=== PATIENT | male | born 1970 | race Caucasian/White ===

== ENCOUNTER 2017-03-06 17:21 | Inpatient (IN) | payer OTHER ==
[~2017-03-06] VITALS: Ht 172.7 cm; Wt 77.4 kg
[~2017-03-06 17:21] MED LIST: METF500T4 PO; SULF1TAB7 PO
[2017-03-06 17:24] VITALS: BP 140/90; PULSE 105; RESP 15; O2SAT 99
[2017-03-06 17:42] LABS: BASOPHILS % (AUTO) 0.2 % (0-3); EOSINOPHILS % (AUTO) 0.6 % (0-5); MONOCYTES % (AUTO) 5.8 % (4-12); Mean Corpuscular Hemoglobin 30.7 pg (27.0-35.0); NEUTROPHILS % (AUTO) 83.7 % (40-74); Platelet Count 319 bil/L (150-400)
[2017-03-06 17:50] VITALS: BP 186/137; PULSE 115; RESP 40; O2SAT 98
--- NOTE | 2017-03-06 17:52 | DRSVH ---
PROCEDURE: X-RAY CHEST ONE VIEW, PORTABLE ([id number]) INDICATIONS: CHEST PAIN TECHNIQUE: One view of the chest was acquired. COMPARISON: None. FINDINGS: Surgical changes and devices: None. Lungs and pleura: No pleural effusions or pneumothorax. Vocal opacity noted in the right lung base w hich could represent atelectasis versus pneumonia. Mediastinum: Mediastinal contours appear normal. Heart size is normal. Bones and chest wall: No suspicious bony lesions. Overlying soft tissues appear unremarkable. IMPRESSION: Right basilar atelectasis versus pneumonia. Dictated by: Zoraida Duarte MD, PhD on 03/06/2017 at 17:50 Approved by: Zoraida Duarte MD, PhD on 03/06/2017 at 17:51
--- NOTE | 2017-03-06 18:04 | ED.REPORT ---
HPI-General Illness Date of Service March 06, 2017 ED Provider: Dr. Gracia Pt is a 46 y/o male w/ a hx of NIDDM presenting to the ED c/o sharp stabbing right-sided CP with radiation to the back onset 4 hours ago. He was working in his shop when the pain began. He has never experienced symptoms similar to this before. He used to use cocaine but hasn't in the past 5 years. He c/o associated SOB. Pt denies abdominal pain, nausea, vomiting, fever, chills. He states he buys a drug from a friend and doesn't know what it is and smokes it to calm himself. Nursing Notes Stated Complaint: CHEST PAIN AND ABD PAIN X3DAYS Chief Complaint: Chest Pain Nursing Notes Reviewed: Yes Allergies: Coded Allergies: Penicillins (Verified Allergy, Mild, SWELLING, 05/13/16) Scheduled Metformin (Metformin) 500 Mg Tablet 500 MG PO BIDWM General Time Seen by MD: 18:04 Chief Complaint Chest pain Hx Obtained From: Patient Arrived By: Walk-in Sudden in Onset?: No Onset Occurred: 1 - 4 hours ago Symptom Duration: Since onset Location: : Chest Quality: Sharp, Stabbing Radiation: : Does not radiate Severity: Current: Severe Severity: Maximum: Severe Similar Sx Previous: No Past Medical History Past Medical History NIDDM GERD Hx MRSA cellulitis Past Surgical History denies Smoking History Never Smoker Social History Denies drug use although meth positive Alcohol Use: In recovery Drug Use: Meth Occupation lives by self, work at [employer] Ambulatory Status Independent Review of Systems Full Review of Systems Constitutional: Denies: Chills, Fever Respiratory: Reports: Shortness of breath, Denies: Non-productive cough Cardiovascular: Reports: Chest pain, Denies: Edema GI: Denies: Abdominal pain, Nausea, Vomiting Complete sys rev & neg: except as marked. Physical Exam Vital Signs Vital Signs Date Time Temp Pulse Resp B/P Pulse Ox O2 Delivery O2 Flow Rate FiO2 03/06/17 18:47 93 16 141/64 96 Room Air 03/06/17 18:13 93 24 116/53 98 Room Air 03/06/17 17:50 115 40 186/137 98 03/06/17 17:24 36.4 105 15 140/90 99 Room Air Initial VS: Reviewed, Vital signs abnormal Head / Eyes: Atraumatic, Normocephalic, PERRL ENT: Mucous membranes moist, Conjunctiva normal, No scleral icterus Neck: Supple, Full range of motion Abdomen / GI: Soft, Non-tender, No guarding, No rebound, No distention Extremities: Vascular intact, Neuro intact, No swelling, No tenderness Skin: Warm, Dry, No cyanosis Neurologic: Alert, Oriented, Nonfocal General/Constitutional: Awake, Alert, Cooperative, Not toxic appearing Distress / Hydration: Positive: Distress moderate Behavior: Positive: Anxious Screaming out in the room Respiratory / Chest: Atraumatic, Breath sounds NL, Breath sounds = bilat, No respiratory distress, No rales, No rhonchi, No wheezing, No stridor, No chest tenderness No visible signs of trauma Hyperventilating Cardiovascular: Regular rhythm, Heart sounds NL, No gallop, No murmurs, No rubs , Cap refill not delayed, Peripheral circulation NL Heart Rate / Rhythm: Positive: Tachycardia Psychiatric: No hallucinations Abnormal Mood/Affect: Positive: Anxious Interpretation & Diagnostics Lab Results Interpretation Result Diagram: 03/06/17 1735 03/06/17 1735 Test 03/06/17 17:35 03/06/17 20:36 03/06/17 23:20 03/06/17 23:35 White Blood Count 18.6th/mm3 (3.8-10.1) Red Blood Count 4.99mil/mm3 (4.40-5.80) Hemoglobin 15.3g/dL (13.8-17.2) Hematocrit 42.9% (41.0-50.0) Mean Corpuscular Volume 86.0fL (81-100) Mean Corpuscular Hemoglobin 30.7pg (27.0-35.0) Mean Corpuscular Hemoglobin Concent 35.7% (32.0-37.0) Red Cell Distribution Width 12.1% (12.3-15.4) Platelet Count 319bil/L (150-400) Neutrophils (%) (Auto) 83.7% (40-74) Lymphocytes (%) (Auto) 9.5% (14-46) Monocytes (%) (Auto) 5.8% (4-12) Eosinophils (%) (Auto) 0.6% (0-5) Basophils (%) (Auto) 0.2% (0-3) D-Dimer < 0.50mg/L FEU (<0.50) Sodium Level 132mEq/L (134-144) Potassium Level 4.1mEq/L (3.5-5.2) Chloride Level 93mEq/L (97-108) Carbon Dioxide Level 23mmol/L (18-29) Blood Urea Nitrogen 13mg/dL (6-24) Creatinine 0.71mg/dL (0.76-1.27) Estimat Glomerular Filtration Rate 126mL/min (>59) Glucose Level 404mg/dL (60-99) Calcium Level 9.4mg/dL (8.5-10.1) Magnesium Level 1.7mg/dL (1.6-2.6) Total Bilirubin 0.7mg/dL (0.0-1.2) Aspartate Amino Transf (AST/SGOT) 15U/L (0-50) Alanine Aminotransferase (ALT/SGPT) 19U/L (0-44) Alkaline Phosphatase 94U/L (25-150) Total Protein 7.2g/dL (6.4-8.4) Albumin 3.9g/dL (3.4-5.0) Lipase 46U/L (13-60) Procalcitonin 0.05ng/mL (0.00-0.08) Hold Griffin Top Tube Received (Received) Urine Opiates Screen Negative Urine Methadone Screen Negative Urine Barbiturates Screen Negative Urine Amphetamines Screen Positive Urine Benzodiazepines Screen Negative Urine Cocaine Metabolite Screen Negative Urine Cannabinoids Screen Negative Lactic Acid Level 0.8mmol/L (0.4-2.0) Troponin T 0.010ug/L (0.0-0.011) Pulse Oximetry Interpretation Pulse Oximetry: Pulse Ox normal, On room air ECG Interpretation Time: 18:22 Interpreted by: ED physician Normal ECG Interpretation: Normal ECG w/ rate of... (96), Normal rate, Normal sinus rhythm, No acute ischemic changes, Normal QRS, Normal axis, Normal intervals, Adequate tracing CBC Interpretation CBC normal except, WBC elevated BMP / CMP Interpretation BMP/CMP normal except, Glucose elevated Cardiac / Vascular Lab Interp D-Dimer normal Drug Screen / Level Interp Urine pos amphetamines X-Ray Chest Interpretation Chest Xray Interpretation: IMPRESSION: Right basilar atelectasis versus pneumonia. Dictated by: Zoraida Duarte MD, PhD on 03/06/2017 at 17:50 Approved by: Zoraida Duarte MD, PhD on 03/06/2017 at 17:51 View: Portable, 1 view Interpretation / Wet Read by: Interpret - Radiologist CT Chest Interpretation IMPRESSION: 1. Right basilar opacity stable compared to plain film radiograph obtained 03/06/17 at 1725 hrs. Finding likely represents pneumonia. Recommend followup imaging to resolution to exclude underlying neoplastic process. 2. No pulmonary embolus. Dictated by: Zoraida Duarte MD, PhD on 03/06/2017 at 19:25 Approved by: Zoraida Duarte MD, PhD on 03/06/2017 at 19:32 Study type: CT pulm angiogram Interpretation / Wet Read by: Interpret - Radiologist CT Abd / Pelvis Interpretation IMPRESSION: 1. Focal opacity in the right lung base. Finding likely represents pneumonia. Recommend followup imaging to resolution to exclude underlying neoplastic process. 2. Spine degenerative disc disease and facet arthropathy. Area 3. 2 mm nonobstructing left renal stone. Dictated by: Zoraida Duarte MD, PhD on 03/06/2017 at 19:33 Approved by: Zoraida Duarte MD, PhD on 03/06/2017 at 19:40 Study type: Abdominal CT IV contrast Interpretation / Wet Read by: Interpret - Radiologist Re-Eval/Medical Decision Time of Eval: 23:06 Re-Evaluation/Progress Note: Pt rechecked. Informed pt of need for admission. Pt understands and agrees with plan for admission. All questions addressed. Consultation : Referral / Consult Name: Raymond Harris MD Consulted With: Hospitalist Call Returned at: 23:06 Sales Assistant: Will see patient, Agrees with eval, Agrees with plan, Accepts admit Counseled Regarding: Diagnosis, Lab results, Need for admission Discharge & Departure Primary Impression: Right lower lobe pneumonia Pneumonia type: due to unspecified organism Qualified Code: J18.1 - Lobar pneumonia, unspecified organism Additional Impressions: Methamphetamine abuse Parapneumonic effusion Disposition: ADMITTED TO HOSPITAL Discharge Condition All VS Reviewed: Yes Condition: Stable Patient Instructions: Bacterial Pneumonia (ED), Methamphetamine Abuse (ED) Referrals: Kevin Peña MD (PCP) Scribe Attestation Portions of this note were transcribed by Lefty Stanley. Dr. Basil Guevara personally performed the history, physical exam and medical decision-making; I reviewed and confirmed the accuracy of the information in the transcribed note. Signed by Donnell Hutson, 03/06/171814 copies to: Kevin Peña MD, Todd P DO March 06, 2017 18:04 LEFTY STANLEY March 06, 2017 18:07
[2017-03-06] MEDS ORDERED: 0.9% Sodium Chloride 1,000 ML IV SCH (18:05)
[2017-03-06] MEDS: HYDROmorphone 0.5 mg/0.5 mL iSecure Syringe IVPUSH PRN ×3 (18:07→18:48)
[2017-03-06 18:13] VITALS: BP 116/53; PULSE 93; RESP 24; O2SAT 98
[2017-03-06 18:23] LABS: TROPONIN T < 0.010 ug/L (0.0-0.011)
[2017-03-06 18:28] LABS: Magnesium 1.7 mg/dL (1.6-2.6)
[2017-03-06 18:47] VITALS: BP 141/64; PULSE 93; RESP 16; O2SAT 96
--- NOTE | 2017-03-06 19:34 | DRSVH ---
PROCEDURE: CT ANGIO CHEST PULMONARY EMBOLISM ([id number]) INDICATIONS: severe lower right sided chest pain, ruq pain TECHNIQUE: After the administration of intravenous contrast, 2 mm thick sections acquired from the pulmonary api francy to the posterior costophrenic angles. 3-dimensional maximum intensity projection (MIP) coronal a nd sagittal reformats were then acquired through the thorax. For radiation dose reduction, the follo wing was used: automated exposure control, adjustment of mA and/or kV according to patient size. COMPARISON: [facility], CR, XR CHEST 1VW (PORTABLE), 03/06/2017, 17:25. FINDINGS: Image quality: Excellent. Pulmonary arteries: Pulmonary arteries are normal in size, and demonstrate no intraluminal filling d efects to suggest central pulmonary embolism. Lungs and pleura: Opacity noted in the right lung base which is stable compared to plain film radiog raphs obtained 03/06/17 at 1725 hrs. Race right-sided pleural effusion. No pneumothorax. Central an d peripheral airways are patent. Mediastinum: Heart size is normal, without pericardial effusion. No mediastinal or hilar adenopathy . Thoracic aorta is normal in caliber and enhancement. Esophagus is normal in caliber, without hiat al hernia. Bones and chest wall: No suspicious bony lesions. Ribs and thoracic spine appear intact throughout. Thyroid gland is within normal limits where visualized. No axillary or supraclavicular adenopathy. Abdomen: Visualized upper abdominal solid organs appear normal in the early arterial phase of enhanc ement. IMPRESSION: 1. Right basilar opacity stable compared to plain film radiograph obtained 03/06/17 at 1725 hrs. Fin ding likely represents pneumonia. Recommend followup imaging to resolution to exclude underlying puneet plastic process. 2. No pulmonary embolus. Dictated by: Zoraida Duarte MD, PhD on 03/06/2017 at 19:25 Approved by: Zoraida Duarte MD, PhD on 03/06/2017 at 19:32
--- NOTE | 2017-03-06 19:42 | DRSVH ---
PROCEDURE: CT ABDOMEN AND PELVIS WITH CONTRAST ([id number]) INDICATIONS: severe lower right sided chest pain, ruq pain TECHNIQUE: After the administration of intravenous contrast, 5 mm thick sections acquired from the diaphragm to the symphysis. 5 mm coronal and sagittal reformats were acquired. For radiation dose reduction, the following was used: automated exposure control, adjustment of mA and/or kV according to patient marcelo jack. COMPARISON: [facility], CT, CT ANGIO CHEST PE, 03/06/2017, 19:02. [facility] , CR, XR CHEST 1VW (PORTABLE), 03/06/2017, 17:25. FINDINGS: Image quality: Excellent. ABDOMEN: Lung bases: Focal opacity noted in the right lung base. Small right-sided pleural effusion is noted . Heart size is normal. Solid organs: Liver and spleen are normal in size and enhancement. Gallbladder is within normal aragon its. Biliary system is non dilated. Pancreas enhances normally. No adrenal nodules. Kidneys demon strate normal size and enhancement, without hydronephrosis. 2 mm nonobstructing left renal stone is n oted. Peritoneum and bowel: Bowel loops demonstrate normal wall thickness and caliber. No free fluid or a ir. The appendix is normal. Nodes and vessels: No retroperitoneal or mesenteric adenopathy by size criteria. Aorta and inferior vena cava are normal in size. Miscellaneous: No ventral hernias. PELVIS: Genitourinary: Bladder wall thickness is normal. Miscellaneous: No inguinal hernias or adenopathy. Bones: No suspicious bony lesions. No vertebral body compression fractures. Spine degenerative dise ase and facet arthropathy noted. IMPRESSION: 1. Focal opacity in the right lung base. Finding likely represents pneumonia. Recommend followup i maging to resolution to exclude underlying neoplastic process. 2. Spine degenerative disc disease and facet arthropathy. Area 3. 2 mm nonobstructing left renal s tone. Dictated by: Zoraida Duarte MD, PhD on 03/06/2017 at 19:33 Approved by: Zoraida Duarte MD, PhD on 03/06/2017 at 19:40
[2017-03-06] MEDS ORDERED: cefTRIAXone Inj 2,000 MG in Dextrose 5% Minibag Plus 50 ML IV ONE (20:10)
[2017-03-06] MEDS ORDERED: Azithromycin Inj 500 MG in Dextrose 5% w/Vial Mate 250 ML IV ONE (20:41)
[2017-03-06] MEDS ORDERED: Polyethylene Glycol (PEG) 17 Gm Powder PO PRN (23:40)
[2017-03-06] MEDS ORDERED: Alum-Mag Hydrox-Simeth 30 mL Suspension PO PRN (23:40)
[2017-03-06] MEDS ORDERED: Glucose 40% Oral Gel 15 Gm Tube PO PRN (23:50)
--- NOTE | 2017-03-06 23:55 | PCM.HPMED ---
Subjective Date of Service March 06, 2017 Primary Provider: Admitting Physician: Raymond Harris MD Primary Care Physician: Kevin Peña MD Attending Physician: Raymond Harris MD Admit Status: From the Emergency Department Chief Complaint: Right-sided rib pain History of Present Illness: This is a 46-year-old male with past medical history significant for diabetes mellitus type II who presents today for right-sided rib pain. The patient states that the pain began about 4 days ago and has been intermittent. Tonight the pain became very severe in his right lower anterior ribs. The pain is described as sharp and stabbing with radiation to the back. He states that he can press down on his ribs to cause the pain. He denies any history of trauma. He does have a history of MRSA. The patient also snorts drugs although he is not sure exactly what he is snorting but believes it to be meth. He denies any numbness or tingling in extremities, nausea, vomiting, abdominal pain, fevers, chills. In the emergency department the patient's initial vitals were temperature 36 4 Celsius, pulse 105, respiratory rate 15, blood pressure 140/90, satting at 99% on room air. Initial laboratory tests WBC 18.6 with left shift, hemoglobin 15.3 , hematocrit 42.9, platelets 319. Sodium 132, glucose 404. BUN 13, creatinine .71. Troponin less than 0.010. Lipase 46. The patient's most recent A1c was completed on 02/21/2017 and was 13.4. Chest x-ray showed right basilar atelectasis versus pneumonia. CT angiogram showed right basilar opacity. Finding likely represents pneumonia. No pulmonary embolus. CT of the abdomen and pelvis with contrast focal opacity in the right lung base. 2 mm nonobstructing left renal stone. The patient was provided with azithromycin and ceftriaxone. He was also given nitroglycerin and cannot recall if this helped the rib pain. Review of Systems: A comprehensive review of systems was conducted with the patient and found to be negative except as above in the History of Present Illness. Allergies Coded Allergies: Penicillins (Verified Allergy, Mild, SWELLING, 05/13/16) Home Medications Metformin PMH Diabetes mellitus type II History of sleep apnea Surgical History None Family History Brother: Seizure disorder. Father: Hypertension, hyperlipidemia, diabetes, CAD. Social History Hx Alcohol Use: Yes (sober "several" years. ) Hx Substance Use: Yes ("I snort stuff to get energy, I don't know what it is". today. ) Hx Tobacco Use: No Smoking Status: Never Smoker Exam Vital Signs Vital Sign - Last Date Time Temp Pulse Resp B/P Pulse Ox O2 Delivery O2 Flow Rate FiO2 03/06/17 18:47 93 16 141/64 96 Room Air 03/06/17 17:24 36.4 Exam General: No acute distress, well-developed, well-nourished. HEENT: Normocephalic, atraumatic. External ears without defect. Pupils equal, round, and reactive to light and accommodation. Anicteric sclerae, moist conjunctivae, and no lid lag. Oropharynx has dry mucosa. Neck: Supple with full range of motion. No jugular venous distension. No bruits. No lymphadenopathy or thyromegaly. Cardiovascular: Regular rate and rhythm with no murmurs, rubs, or gallops appreciated Pulmonary: Crackles right lung base. Egophony right lower lung. No wheezes or rhonchi. Normal respiratory effort with no use of accessory muscles. Abdomen: Bowel tones present. Soft, nontender, nondistended. No hepatosplenomegaly or masses appreciated. Extremities: No clubbing, cyanosis, edema, or lymphadenopathy appreciated. Musculoskeletal: Tenderness to palpation of right lower ribs. Skin: Normal temperature, turgor, and texture; no rash, ulcers, or subcutaneous nodules appreciated. Neurological: Cranial nerves grossly intact. Normal muscle strength, tone, and bulk. Reflexes, coordination, and sensory function within normal limits. No known gait impairment. Lab and Diagnostics Result Diagram: 03/06/17 1735 03/06/17 1735 X-Rays, CTs and MRIs Chest x-ray completed on 03/06/2017: IMPRESSION: Right basilar atelectasis versus pneumonia. Dictated by: Zoraida Duarte MD, PhD on 03/06/2017 at 17:50 CT angiogram of chest completed on 03/06/2017: IMPRESSION: 1. Right basilar opacity stable compared to plain film radiograph obtained 03/06 at 1725 hrs. Finding likely represents pneumonia. Recommend followup imaging to resolution to exclude underlying neoplastic process. 2. No pulmonary embolus. Dictated by: Zoraida Duarte MD, PhD on 03/06/2017 at 19:25 CT abdomen with contrast completed on 03/06/2017: IMPRESSION: 1. Focal opacity in the right lung base. Finding likely represents pneumonia. Recommend followup imaging to resolution to exclude underlying neoplastic process. 2. Spine degenerative disc disease and facet arthropathy. Area 3. 2 mm nonobstructing left renal stone. Dictated by: Zoraida Duarte MD, PhD on 03/06/2017 at 19:33 Assessment & Plan This is a 46-year-old male with past medical history significant for diabetes mellitus type II and substance abuse who presents today with right anterior lower rib pain. The patient states that the pain began 4 days ago. He denies any traumatic events. The pain worsened this evening. In the emergency department lab workup was significant for a white blood cell count of 18.6 with left shift. Imaging of the chest showed right basilar pneumonia. The patient does not history of MRSA. Sepsis, ongoing, present on admission: -Likely secondary to community acquired pneumonia. -CT angiogram showed no pulmonary embolus but did show a right basilar opacity likely representing a pneumonia. -Patient was given azithromycin and ceftriaxone in the emergency department. Will continue. -Due to history of MRSA added vancomycin. -Blood cultures, sputum cultures, Legionella antigen, strep pneumo antigen, MRSA swab are pending. -Procalcitonin was 0.05. Right sided chest pain, ongoing, present on admission: -Likely musculoskeletal vs. pleuritic. -[place] added. -Troponin trended x 2. Diabetes mellitus type II, present on admission, ongoing: -Patient's most recent A1c on 02/21/2017 was 13.4. On admission his blood glucose was 404. -Humalog medium dose correctional added -Consider adding basal insulin in the morning. Hypovolemic hyponatremia, present on admission, ongoing: -Sodium of 132 on admit. -Normal saline at 100 ml per hour. History of substance abuse, present on admission, ongoing: -Tox screen was positive for amphetamine. -Patient snorts methamphetamine. DVT prophylaxis with Lovenox. Patient is admitted under observation status with expected length of stay less than 2 midnights due to severity of presenting symptoms, risk of adverse event, and complexity of treatment plan. Attending Statement The patient was seen and examined together with Dr. Lara on 03/06 and I agree with the history, exam and plan as outlined in the note above. Tang Lara DO March 06, 2017 23:55 Raymond Harris MD March 07, 2017 06:30
[2017-03-06 23:59] VITALS: BP 114/69; PULSE 93; RESP 30; O2SAT 98
[2017-03-07] MEDS: 0.9% Sodium Chloride 1,000 ML IV SCH ×4 (00:24→19:39)
[2017-03-07 00:47] VITALS: BP 144/74; PULSE 88; RESP 20; O2SAT 98
--- NOTE | 2017-03-07 02:16 | NUR ---
ADMIT: 0005 Pt. arrived to [facility] from the ED via stretcher. Very somnolent, only answers to "yes, no" questions and sometimes no answers. Started IVF on LAC NS at 100 ml/hr. VS taken upon arrival. Pt. has $710.oo joseph, sent to the safe. Sleeping at this time. On going care.
[2017-03-07] MEDS: HYDROmorphone 0.5 mg/0.5 mL iSecure Syringe IVPUSH PRN (02:24)
--- NOTE | 2017-03-07 02:31 | NUR ---
PAIN: Pt. woke up c/o pain cramping on his right leg rated 10/10, states this has been going on for a while at home "always wake up in a lot of pain on my legs". Given 0.5 mg of IV Dilaudid. Helpful. Pt. went back to sleep after awhile. On going care.
[2017-03-07] MEDS ORDERED: Vancomycin Inj 1,750 MG in 0.9% Sodium Chloride 500 ML IV ONE (04:00)
[2017-03-07] MEDS: HYDROcodone-APAP 5-325 mg Tablet PO PRN ×3 (04:35→19:47)
[2017-03-07 06:03] VITALS: BP 156/75; PULSE 90; RESP 18; O2SAT 97
--- NOTE | 2017-03-07 06:35 | PCM.CONPHA ---
Subjective Date of Service: March 07, 2017 Requesting Provider: Tang Lara DO Right-sided rib pain History of Present Illness sepsis, secondary to possible community acquired pneumonia and UTI? Reason for Pharmacy Consult: Vancomycin Dosing Objective Assessment/Plan Assessment/Plan a/ - 46 y/o male patient admitted in late yesterday for sepsis, secondary to community acquired pneumonia and possible UTI which Vancomycin required for empirical coverage. Patient has hx of MRSA, DM, and snorts methamphetamine - Afebrile, WBC: 18.6 with left shift, blood cultures (x2), urine, sputum, nasal MRSA screen pending - Comitant abx: ceftriaxone and azithromycin - Wt: 78.5 kg, ht: 173 cm, SCr: 0.71 mg/dL, estimated clearance >125ml/min, BMI : 26.3kg/m2m Vd~55L/kg P/ - Give loading dose Vancomycin 1750mg iv @0430, then 1250mg iv q8h. Trough level ordered before 4th dose @0330 on 03/08 Pharmacy will continue to follow and make necessary adjustment Thank you for consulting clinical pharmacy in the care of this patient Juan Francisco Costa Update: - Last 24 hrs, patient is noted not clinically improved, WBC jumped to 21.8. However, all screens/labs came back negative and no growth 24 hrs. Recommend ID consult - Doses given on time, trough drawn appropriate, level is low 5.2 - Give one additional dose of Vancomycin of 750mg to 1250mg already running, then increase Vancomycin 1500mg iv q8h. - If the therapy is to be continued, floor pharmacist will adjust dose as needed (as today SCr is pending) and determine next trough level. Thank you Pato Marsh March 07, 2017 06:35 Mean Corpuscular Hemoglobin 30.7pg (27.0-35.0) Mean Corpuscular Hemoglobin Concent 35.7% (32.0-37.0) Red Cell Distribution Width 12.1% (12.3-15.4) Platelet Count 319bil/L (150-400) Neutrophils (%) (Auto) 83.7% (40-74) Lymphocytes (%) (Auto) 9.5% (14-46) Monocytes (%) (Auto) 5.8% (4-12) Eosinophils (%) (Auto) 0.6% (0-5) Basophils (%) (Auto) 0.2% (0-3) D-Dimer < 0.50mg/L FEU (<0.50) Sodium Level 132mEq/L (134-144) Potassium Level 4.1mEq/L (3.5-5.2) Chloride Level 93mEq/L (97-108) Carbon Dioxide Level 23mmol/L (18-29) Blood Urea Nitrogen 13mg/dL (6-24) Creatinine 0.71mg/dL (0.76-1.27) Estimat Glomerular Filtration Rate 126mL/min (>59) Glucose Level 404mg/dL (60-99) Calcium Level 9.4mg/dL (8.5-10.1) Magnesium Level 1.7mg/dL (1.6-2.6) Total Bilirubin 0.7mg/dL (0.0-1.2) Aspartate Amino Transf (AST/SGOT) 15U/L (0-50) Alanine Aminotransferase (ALT/SGPT) 19U/L (0-44) Alkaline Phosphatase 94U/L (25-150) Total Protein 7.2g/dL (6.4-8.4) Albumin 3.9g/dL (3.4-5.0) Lipase 46U/L (13-60) Procalcitonin 0.05ng/mL (0.00-0.08) Hold Griffin Top Tube Received (Received) Urine Opiates Screen Negative Urine Methadone Screen Negative Urine Barbiturates Screen Negative Urine Amphetamines Screen Positive Urine Benzodiazepines Screen Negative Urine Cocaine Metabolite Screen Negative Urine Cannabinoids Screen Negative Lactic Acid Level 0.8mmol/L (0.4-2.0) Troponin T 0.010ug/L (0.0-0.011) Pato Costa March 07, 2017 06:35
[2017-03-07 08:12] VITALS: BP 119/74; PULSE 61; RESP 18; O2SAT 96
[2017-03-07] MEDS: Vancomycin Dose per Pharmacist XX SCH ×2 (08:17→08:18)
[2017-03-07] MEDS: Insulin LISPRO 300 Unit/3 mL Inj SUBQ SCH ×4 (08:40→21:32)
--- NOTE | 2017-03-07 09:44 | NUR ---
Social Work: Screening Data: Pt is a 46 y/o male admitted for aneumonia parapneumonic effusion. Pt's PCP is Dr Peña, pt's insurance si [employer] [place]. EMR reviewed. Readmit score not listed. Pt reports snorting drugs, per H&P, and not knowing what the drugs are. Per H&P from 2008 hospitalization, pt stated he snorted cocaine at that time. SPONGE PRESS OPERATOR will discuss CD assessment with MD and await orders. SPONGE PRESS OPERATOR will continue to follow. Assessment: Pt who is independent at baseline. Plan: Pt will d/c home when medically stable, SPONGE PRESS OPERATOR will discuss CD assessment with MD and await orders. SPONGE PRESS OPERATOR will continue to follow. STONEY Bar Addendum: 03/07/17 at 1537 by LIZA HENRIQUEZ SS SPONGE PRESS OPERATOR met with pt at bedside, pt states he lives alone and that he sleeps at his mother's house. Pt states he has a ride home with family or friends at d/c. STONEY Bar
--- NOTE | 2017-03-07 11:24 | PCM.PNMED ---
Subjective Date of Service March 07, 2017 Subjective Patient seemed mildly diaphoretic, drowsy this morning Complain of right lower side chest pain, severely worse with deep breathing, and movement denied chest pain, hemoptysis Exam Vital Signs Vital Sign - Last Date Time Temp Pulse Resp B/P Pulse Ox O2 Delivery O2 Flow Rate FiO2 03/07/17 08:12 37.1 61 18 119/74 96 Room Air 03/07/17 06:03 3.00 Intake and Output 03/06/17 03/06/17 03/07/17 Cumulative From/Thru 15:00 23:00 07:00 03/06/17 17:24 - 03/07/17 06:23 Intake Total 1000 ml 1352 ml 2352 ml Output Total 750 ml 750 ml Balance 1000 ml 602 ml 1602 ml Intake Oral 440 ml 440 ml IV Total 1000 ml 912 ml 1912 ml Output Urine Total 750 ml 750 ml # Voids 2 2 # Bowel Movements 0 0 Exam NAD, comfortably laying down on the bed no JVD, MMM, no LAD RRR, nl s1, s2 no mrg Decreased breathing sounds at right base, crackles at left base S,ND,NT,normoactive BS+ warm, no edema, pulses 2/2 IVs and Medications Medications Reviewed: Medications were reviewed in detail Lab and Diagnostics Result Diagram: 03/06/17 1735 03/06/17 1735 X-Rays, CTs and MRIs Chest x-ray completed on 03/06/2017: IMPRESSION: Right basilar atelectasis versus pneumonia. Dictated by: Zoraida Duarte MD, PhD on 03/06/2017 at 17:50 CT angiogram of chest completed on 03/06/2017: IMPRESSION: 1. Right basilar opacity stable compared to plain film radiograph obtained 03/06 at 1725 hrs. Finding likely represents pneumonia. Recommend followup imaging to resolution to exclude underlying neoplastic process. 2. No pulmonary embolus. Dictated by: Zoraida Duarte MD, PhD on 03/06/2017 at 19:25 CT abdomen with contrast completed on 03/06/2017: IMPRESSION: 1. Focal opacity in the right lung base. Finding likely represents pneumonia. Recommend followup imaging to resolution to exclude underlying neoplastic process. 2. Spine degenerative disc disease and facet arthropathy. Area 3. 2 mm nonobstructing left renal stone. Dictated by: Zoraida Duarte MD, PhD on 03/06/2017 at 19:33 Assessment & Plan This is a 46-year-old male with past medical history significant for diabetes mellitus type II and substance abuse who presents today with right anterior lower rib pain. The patient states that the pain began 4 days ago. He denies any traumatic events. The pain worsened this evening. In the emergency department lab workup was significant for a white blood cell count of 18.6 with left shift. Imaging of the chest showed right basilar pneumonia. The patient does not history of MRSA. Sepsis, ongoing, present on admission: Likely secondary to community acquired pneumonia. CT angiogram showed no pulmonary embolus but did show a right basilar opacity likely representing a pneumonia. -Patient was given azithromycin and ceftriaxone in the emergency department. Will continue. -Due to history of MRSA added vancomycin. -Blood cultures, sputum cultures, Legionella antigen, strep pneumo antigen, MRSA swab are pending. -Procalcitonin was 0.05. Right sided chest pain, ongoing, present on admission, likely due to given lesions, pleuritic inflammation. -will consider CT-guided biopsy given atypical looking lesion for PNA if pt remains symptomatic, clinically not improving Diabetes mellitus type II, present on admission, Patient's most recent A1c on was 13.4. On admission his blood glucose was 404. -Humalog medium dose correctional added -added [id number] today Hypovolemic hyponatremia, present on admission, ongoing: Sodium of 132 on admit. -Normal saline at 100 ml per hour. chronic, stable History of substance abuse, present on admission, ongoing: Tox screen was positive for amphetamine. -Patient snorts methamphetamine, appreciate CM/SW input, chemical dependency specialist. DVT prophylaxis with Lovenox. dispo: likely 2-3more days Time spent 35 minutes Ryan Reyes MD March 07, 2017 11:24
[2017-03-07 11:58] LABS: BASOPHILS % (AUTO) 0.1 % (0-3); EOSINOPHILS % (AUTO) 0.2 % (0-5); MONOCYTES % (AUTO) 7.6 % (4-12); Mean Corpuscular Hemoglobin 30.6 pg (27.0-35.0); Mean Corpuscular Volume 87.8 fL (81-100); NEUTROPHILS % (AUTO) 85.9 % (40-74); Platelet Count 300 bil/L (150-400)
[2017-03-07] MEDS: Vancomycin Inj 1,250 MG in 0.9% Sodium Chloride 250 ML IV SCH ×2 (12:24→21:32)
[2017-03-07 12:34] LABS: Magnesium 1.7 mg/dL (1.6-2.6)
[2017-03-07 13:23] VITALS: BP 125/76; PULSE 88; RESP 18; O2SAT 95
--- NOTE | 2017-03-07 15:33 | NUR ---
Social Work: Attempted Chemical Dependency Assessment BUTTONHOLE FACER met with pt at bedside. BUTTONHOLE FACER offered [facility] CDP assessment, BUTTONHOLE FACER CD assessment, and CD resources. Pt declines all of these offers. BUTTONHOLE FACER left contact information on the board, encouraged pt to consider assessment or resources. BUTTONHOLE FACER will continue to follow. STONEY Bar
[2017-03-07 19:49] VITALS: BP 138/89; PULSE 63; RESP 20; O2SAT 95
[2017-03-07] MEDS: cefTRIAXone Inj 2,000 MG in Dextrose 5% Minibag Plus 50 ML IV SCH (20:45)
[2017-03-07] MEDS: Azithromycin Inj 500 MG in Dextrose 5% w/Vial Mate 250 ML IV SCH (23:15)
[2017-03-08] MEDS: HYDROcodone-APAP 5-325 mg Tablet PO PRN ×4 (01:39→21:10)
[2017-03-08] MEDS ORDERED: Vancomycin Serum Trough XX ONE (03:30)
[2017-03-08 03:47] LABS: BASOPHILS % (AUTO) 0.1 % (0-3); EOSINOPHILS % (AUTO) 0.1 % (0-5); MONOCYTES % (AUTO) 8.2 % (4-12); Mean Corpuscular Hemoglobin 29.9 pg (27.0-35.0); Mean Corpuscular Volume 87.7 fL (81-100); NEUTROPHILS % (AUTO) 85.3 % (40-74); Platelet Count 305 bil/L (150-400)
[2017-03-08] MEDS: Vancomycin Inj 1,250 MG in 0.9% Sodium Chloride 250 ML IV SCH (04:38)
[2017-03-08] MEDS: 0.9% Sodium Chloride 1,000 ML IV SCH ×2 (04:39→15:57)
[2017-03-08] MEDS ORDERED: Vancomycin Inj 750 MG in 0.9% Sodium Chloride 250 ML IV ONE (05:35)
[2017-03-08 06:01] VITALS: BP 137/78; PULSE 95; RESP 18; O2SAT 96
--- NOTE | 2017-03-08 06:14 | NUR ---
PAIN/PSYCHE PT REPORTED PAIN 7-8, REC'D PRN VICODIN X2 TIMES WITH + EFFECTS. ABLE TO SLEEP MOST OF NIGHT. USING O2 AT 2L VIA NC. PT CRYING AND STARTED TELLING THIS NURSE SPONTANEOUSLY, REGARDING HIS METH USE, HOME SITUATION AND SAFETY. HE HAS FAMILY ISSUES AND DOES NOT FEEL SAFE, USING METH FOR ENERGY. STATED HE DOES NOT WANT TO LIVE LIKE THIS. CHARGE NURSE NOTIFIED TO PASS TO AM CHARGE NURSE FOR MOBILE APPLICATION DEVELOPER TO SEE HIM.
[2017-03-08 06:54] LABS: Magnesium 1.7 mg/dL (1.6-2.6)
[2017-03-08] MEDS: Insulin LISPRO 300 Unit/3 mL Inj SUBQ SCH ×4 (08:05→21:14)
[2017-03-08] MEDS: Vancomycin Dose per Pharmacist XX SCH (08:07)
[2017-03-08 09:54] VITALS: BP_SYST 102; BP_SYST 122; BP_DIAS 62; BP_DIAS 74; PULSE 97; RESP 18; O2SAT 97; O2SAT 99
--- NOTE | 2017-03-08 11:08 | PCM.PNMED ---
Subjective Date of Service Mar 08, 2017 Subjective pt looked more comfortable, not diaphoretic, c/o cough, sputum-white still has rt sided pain, excruciating with moving, deep inhalation, PCT/wbc worsening, remained afebrile, awaits ID consult, CT guided biopsy was not recommended by Radiology Exam Vital Signs Vital Sign - Last Date Time Temp Pulse Resp B/P Pulse Ox O2 Delivery O2 Flow Rate FiO2 03/08/17 09:54 37.2 97 18 122/74 97 Nasal Cannula 2.00 Intake and Output 03/07/17 03/07/17 03/08/17 Cumulative From/Thru 15:00 23:00 07:00 03/06/17 17:24 - 03/08/17 06:39 Intake Total 2169 ml 2486 ml 7007 ml Output Total 1400 ml 1020 ml 3170 ml Balance 769 ml 1466 ml 3837 ml Intake Oral 800 ml 1114 ml 2354 ml IV Total 1369 ml 1372 ml 4653 ml Output Urine Total 1400 ml 1020 ml 3170 ml # Voids 2 # Bowel Movements 0 0 Exam NAD, comfortably laying down on the bed no JVD, MMM, no LAD RRR, nl s1, s2 no mrg Decreased breathing sounds at right base, crackles at left base S,ND,NT,normoactive BS+ warm, no edema, pulses 2/2 IVs and Medications Medications Reviewed: Medications were reviewed in detail Lab and Diagnostics Result Diagram: 03/08/17 0340 03/08/17 0550 X-Rays, CTs and MRIs Chest x-ray completed on 03/06/2017: IMPRESSION: Right basilar atelectasis versus pneumonia. Dictated by: Zoraida Duarte MD, PhD on 03/06/2017 at 17:50 CT angiogram of chest completed on 03/06/2017: IMPRESSION: 1. Right basilar opacity stable compared to plain film radiograph obtained 03/06 at 1725 hrs. Finding likely represents pneumonia. Recommend followup imaging to resolution to exclude underlying neoplastic process. 2. No pulmonary embolus. Dictated by: Zoraida Duarte MD, PhD on 03/06/2017 at 19:25 CT abdomen with contrast completed on 03/06/2017: IMPRESSION: 1. Focal opacity in the right lung base. Finding likely represents pneumonia. Recommend followup imaging to resolution to exclude underlying neoplastic process. 2. Spine degenerative disc disease and facet arthropathy. Area 3. 2 mm nonobstructing left renal stone. Dictated by: Zoraida Duarte MD, PhD on 03/06/2017 at 19:33 Assessment & Plan This is a 46-year-old male with past medical history significant for diabetes mellitus type II and substance abuse who presents today with right anterior lower rib pain. The patient states that the pain began 4 days ago. He denies any traumatic events. The pain worsened this evening. In the emergency department lab workup was significant for a white blood cell count of 18.6 with left shift. Imaging of the chest showed right basilar pneumonia. The patient does not history of MRSA. Sepsis, ongoing, present on admission: Likely secondary to community acquired pneumonia. CT angiogram showed no pulmonary embolus but did show a right basilar opacity likely representing a pneumonia. -pt is clinically stable, however, lab trends are worsening -started azithromycin and ceftriaxone in the emergency department, continue for now, -Due to history of MRSA added vancomycin, stopped today given neg MRSA. -infectious w/u: BCX, sputum cultures, Legionella antigen, strep pneumo antigen , MRSA swab NGTD -appreciate ID insight Right sided chest pain, ongoing, present on admission, likely due to given lesions, pleuritic inflammation. -considered CT-guided biopsy given atypical looking lesion for PNA, however, not recommended by Radiology Diabetes mellitus type II, present on admission, Patient's most recent A1c on was 13.4. On admission his blood glucose was 404, -glc 175 in target -Humalog medium dose correctional added -added [id number], continue for now Hypovolemic hyponatremia, present on admission, ongoing: Sodium of 132 on admit. -Normal saline at 100 ml per hour. chronic, stable History of substance abuse, present on admission, ongoing: Tox screen was positive for amphetamine. -Patient snorts methamphetamine, appreciate CM/SW input, chemical dependency specialist. DVT prophylaxis with Lovenox. dispo: likely 2-3more days VTE Mechanical Devices: Intermittant Pneumatic CD Time spent 35min Ryan Reyes MD Mar 08, 2017 11:08
[2017-03-08] MEDS ORDERED: Vancomycin Inj 1,500 MG in 0.9% Sodium Chloride 500 ML IV SCH (12:00)
--- NOTE | 2017-03-08 13:21 | PROG NOTE ---
[address] [address] PROGRESS NOTE PATIENT: SHIRLEY SHANKS : 1970 MR#: [id number] ADMIT: 03/06/2017 JOB ID: [id number] DATE: 03/08/2017 REASON FOR CONSULTATION: Right-sided pulmonary infiltrate with severe right pleuritic chest pain. REQUESTING PHYSICIAN: I thank Dr. Leal for this timely consult. HISTORY OF PRESENT ILLNESS: The patient is a 46-year-old gentleman with history of sleep apnea, very poorly controlled type 2 diabetes, and amphetamine snorting. He has not used intravenous drugs by his report. He was in his usual state of reasonably good health, despite his incredibly poorly controlled diabetes, until the day before his March 06 admission. On that day, he awoke with severe right-sided pleuritic chest pain. This was so severe, he could not really inhale beyond a very shallow breath and was almost incapacitated. This was associated with a productive yellow cough and generalized malaise, but no specific fever or chills. He was unable to tell if he was really short of breath or not because he just could not draw a breath enough to exert himself in any way. He was brought into the emergency room, and he was admitted on March 06. At that time, he was found to be afebrile, but his white count was high with left shift, and a chest x-ray showed a right-sided infiltrate. Because of this, the patient was admitted and started on appropriate antibiotics. His initial procalcitonin was near zero but has since increased. Since admission, the patient has continued to be free of fevers, chills, headache, or sore throat. His right pleuritic chest pain is now better than when he came in, and his cough continues. He has no GI or symptoms. PAST MEDICAL HISTORY: 1. Type 2 diabetes with blood sugars as high as 700 and a recent hemoglobin A1C of 13. 2. Obstructive sleep apnea. 3. Distant history of MRSA. SOCIAL HISTORY: The patient sounds as if he is unemployed. He lives on his parent's couch in the local area. He grew up here and then won a college scholarship in athletics and attended [employer] in [place]. He remains very physically active. He has never been a smoker. He was a heavy day drinker until a few years ago when he completely quit. He started inhaling meth about a year ago as an "energy booster." He has never injected drugs. FAMILY HISTORY: Negative for tuberculosis. REVIEW OF SYSTEMS: The patient states he has no significant headache. He denies sinus complaint or visual complaint. No runny nose. No sore throat, odynophagia, dysphagia, or stiff neck. He had no hemoptysis, though he does have a productive cough for the past four or five days. He has never had any similar right pleuritic chest pain. No nausea, vomiting, diarrhea, dysuria, urgency, or frequency. No swelling of the joints, no pain in the extremities, no skin rash, and no neurologic complaint. The remainder of the review of systems was negative. PHYSICAL EXAMINATION: Reveals an afebrile gentleman. Temperature 37.2, pulse 97, respiratory rate 18, blood pressure 122/74. He is saturating well on 2 L. He is in no distress. Examination of the head reveals no evidence of trauma. He is fully awake, alert, and oriented. Sinuses are nontender. Eyes without conjunctivitis or scleral icterus. Nose is normal. Oral cavity without thrush or hairy leukoplakia. Neck is supple and without adenopathy. The patient cannot take a deep breath, but when he does take in a breath, one hears rales, more on the right base than the left. Cardiac tones: Regular rate and rhythm without murmurs, rubs, or gallops. The abdomen is soft and nontender without organomegaly. There is no suprapubic tenderness and no adenopathy in the inguinal or cervical regions. There is no evidence of synovitis or inflammation of the joints. No skin rash is noted. The patient's peripheral strength is excellent and is very well muscled and well developed. No neural deficits. LABORATORY DATA: Labs include white count which has not changed, 19,000 when he came in, now 22,000. He has 85% segs. His creatinine is 0.54. His LFTs are normal. Hemoglobin A1C was 12.3 when he came in. Albumin 2.9. His procalcitonin was zero when he came in. It is now up to 1. Urine tox was positive for amphetamines. Urine legionella and pneumococcal antigens are negative. Micro studies include negative blood cultures, negative respiratory viral PCR, negative MRSA PCR. A sputum polys and no organisms. That culture remains negative at one day. Imaging was carefully reviewed. A CT of the chest shows a right basilar, almost rounded opacity which appears to extend to the pleura. There is a small associated right-sided effusion in the left lung that is basically clear. There is no adenopathy, and no other abnormalities are seen. IMPRESSION: This is a relatively odd case. This gentleman presents primarily with agonizing right pleuritic chest pain, and his CT has a pleural-based rounded sort of pneumonia. He has poorly controlled diabetes and he snorts methamphetamine but otherwise has nothing in his past medical history. His initial procalcitonin was basically zero, but it is starting to climb, and he has an elevated white count with left shift. There are many possibilities here. I would be concerned about regular pathogens but also the possibility of Staphylococcus aureus or any aspiration type pneumonia exists. There is no travel at all, so I think histo and cocci could be excluded with respect to focal pathogens. Cryptococcus would be possible here, as would aspergillus, though neither would be expected to give him the elevated procalcitonin and left shifted white count. Tuberculosis is our long possibility. Nocardia and actinomyces could produce such a similar process. As a final consideration, I would consider the possibility of an embolic type process, perhaps some right-sided pneumonia. This is less likely in that the patient does not have right-sided endocarditis. This is somewhat less likely, as the patient is pretty adamant that he does not inject intravenous drugs, and so far his blood cultures are negative. RECOMMENDATIONS: 1. Diagnostic: Will check HIV, hep C, and crypto antigen. 2. QuantiFERON Gold will also be checked. 3. His current antibiotics include azithromycin and ceftriaxone. To this, I would add Flagyl 500 mg p.o. t.i.d. for the possibility of aspiration. Thank you very much for this consult.
[2017-03-08 15:38] VITALS: BP 119/80; RESP 18; O2SAT 92
--- NOTE | 2017-03-08 15:45 | DRSVH ---
[facility] [address] [place] [address] Echocardiogram Report Name: SHIRLEY SHANKS RStudy Date : 03/08/2017 Height: 68 in Hospital Exam Location: [facility] Weight: 182 lb Gender: Male BSA: 2.0 m2 : 1970 Age: 46 yrs BP: 122/74 mmHg Reason For Study: ENDOCARDITIS Performed By: Mahad Beauchamp Referring Physician: SAVANNA OLIVEIRA Interpretation Summary The left ventricle is normal in size. The ejection fraction is estimated to be 60-65%. The right ventricle is normal size. The right ventricular systolic function is normal. The mitral valve leaflets appear mildly thickened, but open well. The mitral valve chordae are thickened and calcified. Redundant elongated chordae are noted. No obvious mobile typical vegetation seen, however can not r/o old healed vegetation attached to the proximal chordae, appearing as a small calcified structure attached to the chordae. If clinical suspicion for endocarditis is high, consider REKHA. Procedure: A two-dimensional transthoracic echocardiogram with color flow and Doppler was performed. The study quality was technically good. There is no prior echocardiogram noted for this patient. The heart rate ranged between 95-102 bpm during the study. Left Ventricle: The left ventricle is normal in size. There is normal left ventricular wall thickness. Trabeculae near apex are visualized. No thrombus is observed. The ejection fraction is estimated to be 60-65%. There are no focal wall motion abnormalities. Diastolic function could not be accurately assessed due to tachycardia. Right Ventricle: The right ventricle is normal size. The right ventricular systolic function is normal. Atria: Both atria are normal in size. The interatrial septum is intact with no evidence for an atrial septal defect. Mitral Valve: The mitral valve leaflets appear mildly thickened, but open well. The mitral valve chordae are thickened and/or calcified. Redundant elongated chordae are noted. There is trace mitral regurgitation. Aortic Valve: The aortic valve is trileaflet. The aortic valve opens well. No aortic regurgitation is present. Tricuspid Valve: Tricuspid leaflets are thickened. There is trace tricuspid regurgitation. The right ventricular systolic pressure is estimated at 38 mmHg assuming a right atrial pressure of 8 mm Hg. Pulmonic Valve: The pulmonic valve leaflets are thin and pliable; valve motion is normal. There is no pulmonic valvular regurgitation. Great Vessels: The aortic root is normal size. The dimensions of the ascending aorta are normal. The pulmonary artery is normal size. The IVC is of normal diameter and collapses less than 50% with a sniff. This suggests a right atrial pressure of 8 mm Hg. Pericardium/ Pleura There is no pericardial effusion. There is no pleural effusion. MMode/2D Measurements & Calculations LVIDd: 5.0 cm RA long axis LVOT diam LVIDs: 3.3 cm LA A2 area: 16.7 cm FS: 34.1 % LA A4 area: 19.4 cm RA area AoV Opening EPSS: 0.06 cm LA length (vol): 4.8 cm IVSd: 1.0 cm LA vol: 58.0 ml : 16.0 cm Ao root diam LVPWd: 0.86 cm LA vol index RA vol : 50.6 ml asc Aorta RA Diam: 3.3 cm IVC diam: 1.6 cm : 25.8 mm2 LV davenport. diameter/BSA LV sys. diameter/BSA RVD1 (basal) TAPSE: 2.2 cm (cm/m^2): 2.5 (cm/m^2): 1.7 Doppler Measurements & Calculations Ao V2 max: 153.2 cm/sec MV E max jonathan MV E/A: 1.1 TR max jonathan Ao max P.4 mmHg : 79.3 cm/sec : 275.8 cm/sec Ao mean P.1 mmHg MV A max jonathan TR max PG LVOT Max Jonathan : 69.1 cm/sec : 30.4 mmHg : 115.4 cm/sec PA V2 max ANI(I,D): 4.3 cm : 114.8 cm/sec sev ratio: 0.81 PA mean PG : 2.3 mmHg MV dec time: 0.18 sec Ao V2 mean LV V1 max PG PA V2 mean : 109.0 cm/sec : 70.9 cm/sec Ao V2 VTI: 24.1 cm LV V1 VTI PA pr(Accel) ANI(V,D): 4.0 cm2 : 19.5 cm : 30.7 mmHg ANI indexed to BSA (cm^2/m^2): 2.2 Reading Physician:PM
--- NOTE | 2017-03-08 18:20 | NUR ---
Pain: Patient complaining of continual chest discomfort 3/10 on pain scale this shift. [place] administered for pain control. On reassessments, patient has been resting quietly with eyes closed, RR regular. Does not have much motivation for being OOB for activity. Patient states "I want to sleep all day". Only getting OOB to stand to use urinal.
[2017-03-08 19:27] VITALS: BP 156/71; PULSE 119; RESP 20; O2SAT 90
[2017-03-08] MEDS: cefTRIAXone Inj 2,000 MG in Dextrose 5% Minibag Plus 50 ML IV SCH (20:41)
[2017-03-08] MEDS: Azithromycin Inj 500 MG in Dextrose 5% w/Vial Mate 250 ML IV SCH (23:57)
--- NOTE | 2017-03-09 01:15 | NUR ---
Activity Encouraged activity, pt stands at bedside to urinate, refuses to use bathroom. Pt does not understand inability to shower by himself. Cough and deep breathing encouraged, refuses incentive spirometer. Cool cloths and icepacks applied to chest and head for comfort, remains afebrile. Pain controlled with 2X [place], no further reports of pain. Hourly rounding ongoing.
[2017-03-09] MEDS: 0.9% Sodium Chloride 1,000 ML IV SCH ×2 (01:39→06:28)
[2017-03-09] MEDS: HYDROcodone-APAP 5-325 mg Tablet PO PRN ×4 (04:45→20:14)
[2017-03-09 05:48] VITALS: BP 128/78; PULSE 98; RESP 18; O2SAT 92
--- NOTE | 2017-03-09 06:03 | NUR ---
Activity Pt anxious and distressed with SOB, relieved by vicodin x2 tabs. Applied 2L O2 via NC to increase comfort. Pt complains of being hot, remains afebrile. Pt voids in urinal and ambulates to BR. IV abx and fluid this shift. Care continues
[2017-03-09 08:29] LABS: BASOPHILS % (AUTO) 0.1 % (0-3); EOSINOPHILS % (AUTO) 0.2 % (0-5); MONOCYTES % (AUTO) 8.7 % (4-12); Mean Corpuscular Hemoglobin 30.8 pg (27.0-35.0); Mean Corpuscular Volume 88.6 fL (81-100); NEUTROPHILS % (AUTO) 82.2 % (40-74); Platelet Count 324 bil/L (150-400)
[2017-03-09] MEDS: Insulin LISPRO 300 Unit/3 mL Inj SUBQ SCH ×4 (09:02→23:36)
[2017-03-09 09:10] LABS: Magnesium 1.8 mg/dL (1.6-2.6); Phosphorus 2.9 mg/dL (2.5-4.9)
[2017-03-09 11:12] LABS: Cryptococcal Ag Negative (Negative)
--- NOTE | 2017-03-09 12:49 | PCM.PNMED ---
Subjective Date of Service Mar 09, 2017 Subjective pt is doing better, more alert, denied SOB, mildly cough with creamy yellowish sputum, able to take more deep breath Exam Vital Signs Vital Sign - Last Date Time Temp Pulse Resp B/P Pulse Ox O2 Delivery O2 Flow Rate FiO2 03/09/17 05:48 36.9 98 18 128/78 92 Room Air 03/08/17 09:54 2.00 Intake and Output 03/08/17 03/08/17 03/09/17 Cumulative From/Thru 15:00 23:00 07:00 03/06/17 17:24 - 03/09/17 06:35 Intake Total 2054 ml 1745 ml 71952 ml Output Total 1500 ml 800 ml 5470 ml Balance 554 ml 945 ml 5336 ml Intake Oral 850 ml 437 ml 3641 ml IV Total 1204 ml 1308 ml 7165 ml Output Urine Total 1500 ml 800 ml 5470 ml # Voids 2 # Bowel Movements 0 0 Exam NAD, comfortably laying down on the bed no JVD, MMM, no LAD RRR, nl s1, s2 no mrg Decreased breathing sounds at right base, S,ND,NT,normoactive BS+ warm, no edema, pulses 2/2 IVs and Medications Medications Reviewed: Medications were reviewed in detail Lab and Diagnostics Result Diagram: 03/09/17 0814 03/09/17 0814 X-Rays, CTs and MRIs Chest x-ray completed on 03/06/2017: IMPRESSION: Right basilar atelectasis versus pneumonia. Dictated by: Zoraida Duarte MD, PhD on 03/06/2017 at 17:50 CT angiogram of chest completed on 03/06/2017: IMPRESSION: 1. Right basilar opacity stable compared to plain film radiograph obtained 03/06 at 1725 hrs. Finding likely represents pneumonia. Recommend followup imaging to resolution to exclude underlying neoplastic process. 2. No pulmonary embolus. Dictated by: Zoraida Duarte MD, PhD on 03/06/2017 at 19:25 CT abdomen with contrast completed on 03/06/2017: IMPRESSION: 1. Focal opacity in the right lung base. Finding likely represents pneumonia. Recommend followup imaging to resolution to exclude underlying neoplastic process. 2. Spine degenerative disc disease and facet arthropathy. Area 3. 2 mm nonobstructing left renal stone. Dictated by: Zoraida Duarte MD, PhD on 03/06/2017 at 19:33 Assessment & Plan This is a 46-year-old male with past medical history significant for diabetes mellitus type II and substance abuse who presents today with right anterior lower rib pain. The patient states that the pain began 4 days ago. He denies any traumatic events. The pain worsened this evening. In the emergency department lab workup was significant for a white blood cell count of 18.6 with left shift. Imaging of the chest showed right basilar pneumonia. The patient does not history of MRSA. Sepsis, ongoing, present on admission: Likely secondary to community acquired pneumonia. CT angiogram showed no pulmonary embolus but did show a right basilar opacity likely representing a pneumonia. -pt is clinically better, lab trends are slightly better, -started azithromycin and ceftriaxone in the emergency department, continue, added flagyl 03/08 -Due to history of MRSA added vancomycin, stopped 03/08 given neg MRSA. -infectious w/u: BCX, sputum cultures, Legionella antigen, strep pneumo antigen , MRSA swab NGTD -appreciate ID abx management Right sided chest pain, ongoing, present on admission, likely due to given lesions, pleuritic inflammation. -considered CT-guided biopsy given atypical looking lesion for PNA, however, not recommended by Radiology Diabetes mellitus type II, present on admission, Patient's most recent A1c on was 13.4. On admission his blood glucose was 404, -glc 170-190s, not in target -Humalog medium dose correctional added -added [id number], increase to 15unit today Hypovolemic hyponatremia, present on admission, ongoing: Sodium of 132 on admit , normalized with IVF chronic, stable History of substance abuse, present on admission, ongoing: Tox screen was positive for amphetamine. -Patient snorts methamphetamine, appreciate CM/SW input, chemical dependency specialist. DVT prophylaxis with Lovenox. dispo: likely 2-3more days [employer] Mechanical Devices: Intermittant Pneumatic CD Time spent 35min Ryan Reyes MD Mar 09, 2017 12:49
[2017-03-09 14:37] VITALS: BP 148/51; PULSE 104; RESP 18; O2SAT 91
[2017-03-09] MEDS: Insulin GLARgine 100 Unit/mL Syringe SUBQ SCH (14:41)
--- NOTE | 2017-03-09 15:12 | NUR ---
Pain/Activity Pt pain is controlled with po pain medication. States pain is at a tolerable 4/10 after medication. Pt up to the bathroom for a shower. Encouraging ambulation in the hallway. Care continues.
[2017-03-09 16:40] VITALS: BP 128/71; RESP 18; O2SAT 92
[2017-03-09 19:50] VITALS: BP 146/86; PULSE 119; RESP 21; O2SAT 91
[2017-03-09] MEDS: cefTRIAXone Inj 2,000 MG in Dextrose 5% Minibag Plus 50 ML IV SCH (20:16)
[2017-03-09] MEDS: Azithromycin Inj 500 MG in Dextrose 5% w/Vial Mate 250 ML IV SCH (23:37)
[2017-03-10] MEDS: HYDROcodone-APAP 5-325 mg Tablet PO PRN ×4 (00:52→20:43)
[2017-03-10 04:50] VITALS: BP 117/77; PULSE 101; RESP 20; O2SAT 92
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
[2017-03-10 06:13] LABS: BASOPHILS % (AUTO) 0.1 % (0-3); EOSINOPHILS % (AUTO) 0.7 % (0-5); MONOCYTES % (AUTO) 10.8 % (4-12); Mean Corpuscular Hemoglobin 29.9 pg (27.0-35.0); Mean Corpuscular Volume 87.8 fL (81-100); NEUTROPHILS % (AUTO) 75.7 % (40-74); Platelet Count 370 bil/L (150-400)
[2017-03-10 06:27] LABS: Magnesium 1.8 mg/dL (1.6-2.6); Phosphorus 3.3 mg/dL (2.5-4.9)
--- NOTE | 2017-03-10 06:49 | PROG NOTE ---
[address] [address] PROGRESS NOTE PATIENT: SHIRLEY SHANKS : 1970 MR#: [id number] ADMIT: 03/06/2017 JOB ID: [id number] DATE: 03/09/2017 INFECTIOUS DISEASE FOLLOWUP: REASON FOR FOLLOWUP: Unusual right sided pneumonia with severe pleuritic chest pain. INTERVAL HISTORY: Overnight the patient reports dramatic improvement in his right pleuritic chest pain. His fevers and chills are much improved and he is able to breathe almost normally. No nausea, vomiting or diarrhea. PHYSICAL EXAMINATION: Reveals an afebrile gentleman, temperature 36.9, pulse 104, respiratory rate 18, blood pressure 128/71, saturating fairly well on room air. Examination of the oral cavity is unremarkable. His lungs are notable for a few crackles at the right base but they are basically better than yesterday when he could not even take a breath because of so much pleuritic chest pain. Cardia: Tones are regular rate and rhythm without murmur. Abdomen: Benign. No skin rash. LABORATORIES: Labs included white count still at 18,000, still 82% segs. Creatinine 0.46. LFTs normal. Procalcitonin stable at about 1.0. Hepatitis A, B and C serologies are negative. HIV negative. Urine legionella negative. Cryptococcal antigen negative. QuantiFERON Gold pending. Gram stain had many polys but culture was negative. MRSA screen analysis was negative. Respiratory viral PCR negative. Blood cultures negative. IMAGING: Included an abdominal CT which does show a opacity in the right base. IMPRESSION: This is a very unusual pneumonia in a gentleman who snorts methamphetamine. He also has underlying poorly controlled diabetes. So far workup for unusual pathogens is negative. The patient has improved dramatically on his current regimen of azithromycin, ceftriaxone and Flagyl so this is a bacterial process. Dr. Leavitt and I reviewed his CT scan and Dr. Leavitt also wondered whether this could be some sort of foreign body reaction from the impurities in his street purchased methamphetamine that he inhales on a daily basis. RECOMMENDATIONS: 1. We will await the QuantiFERON Gold. 2. Continue these antibiotics for the time being. 3. Continue to closely follow his white count in hopes of improvement.
[2017-03-10] MEDS: Insulin LISPRO 300 Unit/3 mL Inj SUBQ SCH ×4 (08:34→22:00)
[2017-03-10] MEDS: Insulin GLARgine 100 Unit/mL Syringe SUBQ SCH (08:35)
[2017-03-10] MEDS ORDERED: Glucose 40% Oral Gel 15 Gm Tube PO PRN (13:00)
--- NOTE | 2017-03-10 13:00 | PCM.PNMED ---
Subjective Date of Service Mar 10, 2017 Subjective pt is feeling better, still hurt on right side with cough, breathing, afebrile, all labs trend improving Exam Vital Signs Vital Sign - Last Date Time Temp Pulse Resp B/P Pulse Ox O2 Delivery O2 Flow Rate FiO2 03/10/17 04:50 36.5 101 20 117/77 92 Room Air 03/08/17 09:54 2.00 Intake and Output 03/09/17 03/09/17 03/10/17 Cumulative From/Thru 15:00 23:00 07:00 03/06/17 17:24 - 03/10/17 06:23 Intake Total 361 ml 975 ml 1825 ml 38395 ml Output Total 1800 ml 975 ml 8245 ml Balance 361 ml -825 ml 850 ml 5722 ml Intake Oral 975 ml 1500 ml 6116 ml IV Total 361 ml 0 ml 325 ml 7851 ml Output Urine Total 1800 ml 975 ml 8245 ml # Voids 1 3 # Bowel Movements 0 0 Exam NAD, comfortably laying down on the bed no JVD, MMM, no LAD RRR, nl s1, s2 no mrg Decreased breathing sounds at right base, S,ND,NT,normoactive BS+ warm, no edema, pulses 2/2 IVs and Medications Medications Reviewed: Medications were reviewed in detail Lab and Diagnostics Result Diagram: 03/10/17 0550 03/10/17 0550 X-Rays, CTs and MRIs Chest x-ray completed on 03/06/2017: IMPRESSION: Right basilar atelectasis versus pneumonia. Dictated by: Zoraida Duarte MD, PhD on 03/06/2017 at 17:50 CT angiogram of chest completed on 03/06/2017: IMPRESSION: 1. Right basilar opacity stable compared to plain film radiograph obtained 03/06 at 1725 hrs. Finding likely represents pneumonia. Recommend followup imaging to resolution to exclude underlying neoplastic process. 2. No pulmonary embolus. Dictated by: Zoraida Duarte MD, PhD on 03/06/2017 at 19:25 CT abdomen with contrast completed on 03/06/2017: IMPRESSION: 1. Focal opacity in the right lung base. Finding likely represents pneumonia. Recommend followup imaging to resolution to exclude underlying neoplastic process. 2. Spine degenerative disc disease and facet arthropathy. Area 3. 2 mm nonobstructing left renal stone. Dictated by: Zoraida Duarte MD, PhD on 03/06/2017 at 19:33 Assessment & Plan This is a 46-year-old male with past medical history significant for diabetes mellitus type II and substance abuse who presents today with right anterior lower rib pain. The patient states that the pain began 4 days ago. He denies any traumatic events. The pain worsened this evening. In the emergency department lab workup was significant for a white blood cell count of 18.6 with left shift. Imaging of the chest showed right basilar pneumonia. The patient does not history of MRSA. Sepsis, ongoing, present on admission: Likely secondary to community acquired pneumonia. CT angiogram showed no pulmonary embolus but did show a right basilar opacity unsual for typical PNA, possible FB given his drug snorting -pt is clinically better, lab trends are improving -started azithromycin and ceftriaxone in the emergency department, continue, added flagyl 03/08 -Due to history of MRSA added vancomycin, stopped 03/08 given neg MRSA. -infectious w/u: BCX, sputum cultures, Legionella antigen, strep pneumo antigen , MRSA swab NGTD -appreciate ID abx management Right sided chest pain, ongoing, present on admission, likely due to given lesions, pleuritic inflammation. -considered CT-guided biopsy given atypical looking lesion for PNA, however, not recommended by Radiology -will hold off given clinical status improving. Diabetes mellitus type II, present on admission, Patient's most recent A1c on was 13.4. On admission his blood glucose was 404, -glc>200, a1c12. -Humalog high correctional -added [id number] to 15, increase to 20unit today Hypovolemic hyponatremia, present on admission, ongoing: Sodium of 132 on admit , normalized with IVF chronic, stable History of substance abuse, present on admission, ongoing: Tox screen was positive for amphetamine. -Patient snorts methamphetamine, appreciate CM/SW input, chemical dependency specialist. DVT prophylaxis with Lovenox. dispo: likely 2-3more days [employer] Devices: Intermittant Pneumatic CD Time spent 35min Ryan Reyes MD Mar 10, 2017 13:00
[2017-03-10 13:06] VITALS: BP 141/89; PULSE 109; RESP 20; O2SAT 90
--- NOTE | 2017-03-10 13:29 | NUR ---
resp having some mild resp distress, pt feels his breathing has improved only slightly since admission, temp 37.4 C, wheezes throughout both lung cantu, slightly productive cough. He does not seem to be as delusional as he was last night, but still impulsive
[2017-03-10 19:55] VITALS: BP 139/88; PULSE 97; RESP 19; O2SAT 94
[2017-03-10] MEDS: cefTRIAXone Inj 2,000 MG in Dextrose 5% Minibag Plus 50 ML IV SCH (20:42)
[2017-03-11] MEDS: Azithromycin Inj 500 MG in Dextrose 5% w/Vial Mate 250 ML IV SCH ×2 (00:22→22:20)
[2017-03-11] MEDS: HYDROcodone-APAP 5-325 mg Tablet PO PRN ×3 (00:55→16:51)
[2017-03-11] MEDS: guaiFENesin 600 mg ER12 Tablet PO SCH ×3 (00:55→20:31)
[2017-03-11 05:31] VITALS: BP 132/83; PULSE 92; RESP 19; O2SAT 95
[2017-03-11 06:12] LABS: BASOPHILS % (AUTO) 0.2 % (0-3); EOSINOPHILS % (AUTO) 1.5 % (0-5); MONOCYTES % (AUTO) 12.4 % (4-12); Mean Corpuscular Hemoglobin 29.7 pg (27.0-35.0); NEUTROPHILS % (AUTO) 68.3 % (40-74); Platelet Count 420 bil/L (150-400)
[2017-03-11 06:35] LABS: Magnesium 1.8 mg/dL (1.6-2.6); Phosphorus 3.9 mg/dL (2.5-4.9)
--- NOTE | 2017-03-11 07:37 | NUR ---
Cough/IV Infiltration RFA IV infiltrate, new site on LFA. Productive cough managed with new order for mucinex. Pt reports chest pain from coughing. Pt has nightmare but no other anxiety episodes this shift. Independent to restroom. Care continues
[2017-03-11] MEDS: Insulin LISPRO 300 Unit/3 mL Inj SUBQ SCH ×4 (08:16→22:19)
[2017-03-11] MEDS: Insulin GLARgine 100 Unit/mL Syringe SUBQ SCH (08:18)
[2017-03-11] MEDS ORDERED: Insulin GLARgine 100 Unit/mL Syringe SUBQ ONE (11:30)
--- NOTE | 2017-03-11 11:32 | PCM.PNMED ---
Subjective Date of Service Mar 11, 2017 Subjective pt was intermittently anxious, however, clinically remained stable pt stated today, that something went into throat, unknown FB from air, then started his sx. still coughing, mildly productive, Rt chest pain continued, no SOB Exam Vital Signs Vital Sign - Last Date Time Temp Pulse Resp B/P Pulse Ox O2 Delivery O2 Flow Rate FiO2 03/11/17 05:31 36.8 92 19 132/83 95 Room Air 03/08/17 09:54 2.00 Intake and Output 03/10/17 03/10/17 03/11/17 Cumulative From/Thru 15:00 23:00 07:00 03/06/17 17:24 - 03/11/17 05:49 Intake Total 1250 ml 1394 ml 29617 ml Output Total 950 ml 9195 ml Balance 1250 ml 444 ml 7416 ml Intake Oral 1250 ml 1394 ml 8760 ml IV Total 7851 ml Output Urine Total 950 ml 9195 ml # Voids 3 6 # Bowel Movements 1 1 2 Exam NAD, comfortably laying down on the bed no JVD, MMM, no LAD RRR, nl s1, s2 no mrg Decreased breathing sounds at right base, S,ND,NT,normoactive BS+ warm, no edema, pulses 2/2 IVs and Medications Medications Reviewed: Medications were reviewed in detail Lab and Diagnostics Result Diagram: 03/11/17 0525 03/11/17 0525 X-Rays, CTs and MRIs Chest x-ray completed on 03/06/2017: IMPRESSION: Right basilar atelectasis versus pneumonia. Dictated by: Zoraida Duarte MD, PhD on 03/06/2017 at 17:50 CT angiogram of chest completed on 03/06/2017: IMPRESSION: 1. Right basilar opacity stable compared to plain film radiograph obtained 03/06 at 1725 hrs. Finding likely represents pneumonia. Recommend followup imaging to resolution to exclude underlying neoplastic process. 2. No pulmonary embolus. Dictated by: Zoraida Duarte MD, PhD on 03/06/2017 at 19:25 CT abdomen with contrast completed on 03/06/2017: IMPRESSION: 1. Focal opacity in the right lung base. Finding likely represents pneumonia. Recommend followup imaging to resolution to exclude underlying neoplastic process. 2. Spine degenerative disc disease and facet arthropathy. Area 3. 2 mm nonobstructing left renal stone. Dictated by: Zoraida Duarte MD, PhD on 03/06/2017 at 19:33 Assessment & Plan This is a 46-year-old male with past medical history significant for diabetes mellitus type II and substance abuse who presents today with right anterior lower rib pain. The patient states that the pain began 4 days ago. He denies any traumatic events. The pain worsened this evening. In the emergency department lab workup was significant for a white blood cell count of 18.6 with left shift. Imaging of the chest showed right basilar pneumonia. The patient does not history of MRSA. Sepsis, ongoing, present on admission: Likely secondary to community acquired pneumonia. CT angiogram showed no pulmonary embolus but did show a right basilar opacity unsual for typical PNA, possible FB given his drug snorting -pt is clinically better, lab trends are improving -started azithromycin and ceftriaxone in the emergency department, continue, added flagyl 03/08 -Due to history of MRSA added vancomycin, stopped 03/08 given neg MRSA. -infectious w/u: BCX, sputum cultures, Legionella antigen, strep pneumo antigen , MRSA swab NGTD -appreciate ID abx management Right sided chest pain, ongoing, present on admission, likely due to given lesions, pleuritic inflammation. -considered CT-guided biopsy given atypical looking lesion for PNA, however, not recommended by Radiology -will hold off given clinical status improving. Diabetes mellitus type II, present on admission, Patient's most recent A1c on was 13.4. On admission his blood glucose was 404, -remained uncontrolled glc>200, a1c12. -Humalog high correctional -added [id number] to 15, increase to 20unit today Hypovolemic hyponatremia, present on admission, ongoing: Sodium of 132 on admit , normalized with IVF chronic, stable History of substance abuse, present on admission, ongoing: Tox screen was positive for amphetamine. -Patient snorts methamphetamine, appreciate CM/SW input, chemical dependency specialist -patient adamantly refused DVT prophylaxis with Lovenox. dispo: likely 1-2more days,follow up with ID [employer] Devices: Intermittant Pneumatic CD Time spent 35min Ryan Reyes MD Mar 11, 2017 11:32
[2017-03-11 13:28] VITALS: BP 133/82; PULSE 99; RESP 18; O2SAT 92
[2017-03-11] MEDS: cefTRIAXone Inj 2,000 MG in Dextrose 5% Minibag Plus 50 ML IV SCH (20:30)
[2017-03-11 22:56] VITALS: BP 149/89; PULSE 82; RESP 20; O2SAT 96
[2017-03-12] MEDS: HYDROcodone-APAP 5-325 mg Tablet PO PRN (01:46)
--- NOTE | 2017-03-12 04:55 | NUR ---
Mood Labile moods through night; walk in hallway and shower improved mood, nursing interventions and staff in and out of room increased agitation; every effort made to provide group supportive, quiet, appropriate care with minimal intrusions. Rounding provided with minimal intrusion, especially after pt got to sleep.
[2017-03-12 06:00] VITALS: BP 114/79; PULSE 79; RESP 16; O2SAT 92
[2017-03-12] MEDS: Insulin LISPRO 300 Unit/3 mL Inj SUBQ SCH ×2 (06:07→09:15)
[2017-03-12 06:28] LABS: BASOPHILS % (AUTO) 0.2 % (0-3); EOSINOPHILS % (AUTO) 1.4 % (0-5); MONOCYTES % (AUTO) 11.2 % (4-12); Mean Corpuscular Hemoglobin 29.9 pg (27.0-35.0); Mean Corpuscular Volume 87.2 fL (81-100); Platelet Count 433 bil/L (150-400)
[2017-03-12 06:59] LABS: Magnesium 1.9 mg/dL (1.6-2.6); Phosphorus 3.8 mg/dL (2.5-4.9)
[2017-03-12] MEDS ORDERED: Insulin GLARgine 100 Unit/mL Syringe SUBQ SCH (08:30)
--- NOTE | 2017-03-12 08:55 | PCM.PNMED ---
Subjective Date of Service Mar 12, 2017 Subjective Riught sided pleuritic chest pain almost gone, much better. Minimal cough. Blood sugars very elevated. Exam Vital Signs Vital Sign - Last Date Time Temp Pulse Resp B/P Pulse Ox O2 Delivery O2 Flow Rate FiO2 03/12/17 06:00 36.7 79 16 114/79 92 Room Air 03/08/17 09:54 2.00 Intake and Output 03/11/17 03/11/17 03/12/17 Cumulative From/Thru 15:00 23:00 07:00 03/06/17 17:24 - 03/12/17 06:02 Intake Total 1500 ml 356 ml 95242 ml Output Total 9195 ml Balance 1500 ml 356 ml 9272 ml Intake Oral 1500 ml 02210 ml IV Total 356 ml 8207 ml Output Urine Total 9195 ml # Voids 2 8 # Bowel Movements 2 4 Exam Lungs with crackles in the right base CV S1S2 present no murmur GI; soft and non acute Extr; no edema Skin; no rash Lab and Diagnostics Result Diagram: 03/12/17 0600 03/12/17 0600 X-Rays, CTs and MRIs Chest x-ray completed on 03/06/2017: IMPRESSION: Right basilar atelectasis versus pneumonia. Dictated by: Zoraida Duarte MD, PhD on 03/06/2017 at 17:50 CT angiogram of chest completed on 03/06/2017: IMPRESSION: 1. Right basilar opacity stable compared to plain film radiograph obtained 03/06 at 1725 hrs. Finding likely represents pneumonia. Recommend followup imaging to resolution to exclude underlying neoplastic process. 2. No pulmonary embolus. Dictated by: Zoraida Duarte MD, PhD on 03/06/2017 at 19:25 CT abdomen with contrast completed on 03/06/2017: IMPRESSION: 1. Focal opacity in the right lung base. Finding likely represents pneumonia. Recommend followup imaging to resolution to exclude underlying neoplastic process. 2. Spine degenerative disc disease and facet arthropathy. Area 3. 2 mm nonobstructing left renal stone. Dictated by: Zoraida Duarte MD, PhD on 03/06/2017 at 19:33 Assessment & Plan This is a 46-year-old male with past medical history significant for diabetes mellitus type II and substance abuse who presents today with right anterior lower rib pain. The patient states that the pain began 4 days ago. He denies any traumatic events. The pain worsened this evening. In the emergency department lab workup was significant for a white blood cell count of 18.6 with left shift. Imaging of the chest showed right basilar pneumonia. The patient does not history of MRSA. 1. Sepsis, present on admission, resolved -Likely secondary to community acquired pneumonia. CT angiogram showed no pulmonary embolus but did show a right basilar opacity unsual for typical PNA, possible FB given his drug snorting -pt is clinically better, lab trends are improving -started azithromycin and ceftriaxone in the emergency department, continue, added flagyl 03/08 2. Rightlower lobe pneumonia, ongoing, present on admission, improving -procal down to 0.4 -continue azithr and rocephin today, (day 6) -patient needs follow up cxr until this RLL process is clear otherwise further workup indicated, discussed with patient 3. Diabetes mellitus type II, present on admission, active and uncontrolled -HbA1C = 12.3, and bllod sugars > 200 most of the time here -resume patient metformin today -continue lantus we started here, 20, -patient will need to know how to use insulin before going home, we will do this today 4. Hypovolemic hyponatremia, present on admission, ongoing: Sodium of 132 on admit, normalized with IVF chronic, stable 5. History of substance abuse, present on admission, ongoing: Tox screen was positive for amphetamine. -Patient snorts methamphetamine, appreciate CM/SW input, chemical dependency specialist -patient adamantly refused DVT prophylaxis with Lovenox. dispo: likely 1-2more days,follow up with ID [employer] Devices: Intermittant Pneumatic CD Tommy Parks MD Mar 12, 2017 08:55
[2017-03-12] MEDS: guaiFENesin 600 mg ER12 Tablet PO SCH (09:15)
--- NOTE | 2017-03-12 09:56 | NUR ---
Pt left AMA Pt left AMA at 0950 hrs. PIV was removed intact by Torres Kee RN. All personal possessions with pt. Advised pt that his blood glucose was high and his diabetes was not well controlled. He stated he was aware of this and that he would get his blood sugar down by eating better and by exercising. Pt also reported to Torres that he would get a chest x-ray done and follow up with his primary care physician. Pt signed AMA release form before leaving.
--- NOTE | 2017-03-12 10:03 | PCM.DIMED ---
Discharge Instructions Date of Service Mar 12, 2017 Dates of Hospitalization March 06, 2017 at 23:35 Discharge Diagnosis Discharge Diagnosis Pneumonia Uncontrolled diabetes Patient Instructions Patient Instructions Patient left AMA before I could speak with him again. Should follow up with his primary care provider. Follow-up with PCP in: 1 week Tommy Parks MD Mar 12, 2017 10:02
--- NOTE | 2017-03-12 10:05 | PCM.DC.MED ---
Discharge Summary Date of Service Mar 12, 2017 Dates of Hospitalization Date of Hospital Admission March 06, 2017 at 23:35 Date of Discharge: Mar 12, 2017 Providers: Admitting Physician: Raymond Harris MD Primary Care Physician: Kevin Peña MD Attending Physician: Raymond Harris MD Diagnosis at Time of Discharge Diagnosis at Time of Discharge Pneumonia Uncontrolled diabetes Procedures XRay, CTs & MRIs Chest x-ray completed on 03/06/2017: IMPRESSION: Right basilar atelectasis versus pneumonia. Dictated by: Zoraida Duarte MD, PhD on 03/06/2017 at 17:50 CT angiogram of chest completed on 03/06/2017: IMPRESSION: 1. Right basilar opacity stable compared to plain film radiograph obtained 03/06 at 1725 hrs. Finding likely represents pneumonia. Recommend followup imaging to resolution to exclude underlying neoplastic process. 2. No pulmonary embolus. Dictated by: Zoraida Duarte MD, PhD on 03/06/2017 at 19:25 CT abdomen with contrast completed on 03/06/2017: IMPRESSION: 1. Focal opacity in the right lung base. Finding likely represents pneumonia. Recommend followup imaging to resolution to exclude underlying neoplastic process. 2. Spine degenerative disc disease and facet arthropathy. Area 3. 2 mm nonobstructing left renal stone. Dictated by: Zoraida Duarte MD, PhD on 03/06/2017 at 19:33 Brief History This is a 46-year-old male with past medical history significant for diabetes mellitus type II who presents today for right-sided rib pain. The patient states that the pain began about 4 days ago and has been intermittent. Tonight the pain became very severe in his right lower anterior ribs. The pain is described as sharp and stabbing with radiation to the back. He states that he can press down on his ribs to cause the pain. He denies any history of trauma. He does have a history of MRSA. The patient also snorts drugs although he is not sure exactly what he is snorting but believes it to be meth. He denies any numbness or tingling in extremities, nausea, vomiting, abdominal pain, fevers, chills. In the emergency department the patient's initial vitals were temperature 36 4 Celsius, pulse 105, respiratory rate 15, blood pressure 140/90, satting at 99% on room air. Initial laboratory tests WBC 18.6 with left shift, hemoglobin 15.3 , hematocrit 42.9, platelets 319. Sodium 132, glucose 404. BUN 13, creatinine .71. Troponin less than 0.010. Lipase 46. The patient's most recent A1c was completed on 02/21/2017 and was 13.4. Chest x-ray showed right basilar atelectasis versus pneumonia. CT angiogram showed right basilar opacity. Finding likely represents pneumonia. No pulmonary embolus. CT of the abdomen and pelvis with contrast focal opacity in the right lung base. 2 mm nonobstructing left renal stone. The patient was provided with azithromycin and ceftriaxone. He was also given nitroglycerin and cannot recall if this helped the rib pain. Hospital Course This is a 46-year-old male with past medical history significant for diabetes mellitus type II and substance abuse who presents today with right anterior lower rib pain. The patient states that the pain began 4 days ago. He denies any traumatic events. The pain worsened this evening. In the emergency department lab workup was significant for a white blood cell count of 18.6 with left shift. Imaging of the chest showed right basilar pneumonia. The patient does not history of MRSA. 1. Sepsis, present on admission, resolved -Likely secondary to community acquired pneumonia. CT angiogram showed no pulmonary embolus but did show a right basilar opacity unsual for typical PNA, possible FB given his drug snorting -pt is clinically better, lab trends are improving -started azithromycin and ceftriaxone in the emergency department, continue, added flagyl 03/08 2. Rightlower lobe pneumonia, ongoing, present on admission, improving -procal down to 0.4 -continue azithr and rocephin today, (day 6) -patient needs follow up cxr until this RLL process is clear otherwise further workup indicated, discussed with patient Patient left AMA, I did recommend to follow up with cxr, if abnormalities do not clear further work up recommended 3. Diabetes mellitus type II, present on admission, active and uncontrolled -HbA1C = 12.3, and bllod sugars > 200 most of the time here -resume patient metformin today -continue lantus we started here, 20, -patient will need to know how to use insulin before going home, we will do this today -Patient left AMA, before we could teach him how to use insulin 4. Hypovolemic hyponatremia, present on admission, ongoing: Sodium of 132 on admit, normalized with IVF chronic, stable 5. History of substance abuse, present on admission, ongoing: Tox screen was positive for amphetamine. -Patient snorts methamphetamine, appreciate CM/SW input, chemical dependency specialist -patient adamantly refused DVT prophylaxis with Lovenox. dispo: likely 1-2more days,follow up with ID Exam Vital Signs (Last) Date Time Temp Pulse Resp B/P Pulse Ox O2 Delivery O2 Flow Rate FiO2 03/12/17 06:00 36.7 79 16 114/79 92 Room Air 03/08/17 09:54 2.00 Test 03/06/17 17:35 03/06/17 20:36 03/06/17 23:20 03/06/17 23:35 D-Dimer < 0.50mg/L FEU (<0.50) Hemoglobin A1c 12.3% (4.8-5.6) Lipase 46U/L (13-60) Hold Griffin Top Tube Received (Received) Urine Opiates Screen Negative Urine Methadone Screen Negative Urine Barbiturates Screen Negative Urine Amphetamines Screen Positive Urine Benzodiazepines Screen Negative Urine Cocaine Metabolite Screen Negative Urine Cannabinoids Screen Negative Urine Legionella pneumophilia Ag Negative (Negative) Lactic Acid Level 0.8mmol/L (0.4-2.0) Troponin T 0.010ug/L (0.0-0.011) Test 03/08/17 03:40 03/08/17 13:30 03/12/17 06:00 Vancomycin Level Trough 5.2mcg/mL Cryptococcus Antigen Negative (Negative) Hepatitis A Antibody Total Negative (Negative) Hepatitis B Surface Antigen Negative (Negative) Hepatitis B Surface Antibody Non reactive (.) Hepatitis B Core Total Antibody Negative (Negative) Hepatitis C Antibody <0.1s/co ratio (0.0-0.9) HIV (1&2) Ag and Ab, 4th Generation Non reactive (Non Reactive) White Blood Count 12.9th/mm3 (3.8-10.1) Red Blood Count 4.62mil/mm3 (4.40-5.80) Hemoglobin 13.8g/dL (13.8-17.2) Hematocrit 40.3% (41.0-50.0) Mean Corpuscular Volume 87.2fL (81-100) Mean Corpuscular Hemoglobin 29.9pg (27.0-35.0) Mean Corpuscular Hemoglobin Concent 34.2% (32.0-37.0) Red Cell Distribution Width 12.1% (12.3-15.4) Platelet Count 433bil/L (150-400) Neutrophils (%) (Auto) 68.0% (40-74) Lymphocytes (%) (Auto) 18.8% (14-46) Monocytes (%) (Auto) 11.2% (4-12) Eosinophils (%) (Auto) 1.4% (0-5) Basophils (%) (Auto) 0.2% (0-3) Sodium Level 137mEq/L (134-144) Potassium Level 3.8mEq/L (3.5-5.2) Chloride Level 99mEq/L (97-108) Carbon Dioxide Level 26mmol/L (18-29) Blood Urea Nitrogen 11mg/dL (6-24) Creatinine 0.56mg/dL (0.76-1.27) Estimat Glomerular Filtration Rate 166mL/min (>59) Glucose Level 257mg/dL (60-99) Calcium Level 8.6mg/dL (8.5-10.1) Phosphorus Level 3.8mg/dL (2.5-4.9) Magnesium Level 1.9mg/dL (1.6-2.6) Total Bilirubin 0.3mg/dL (0.0-1.2) Aspartate Amino Transf (AST/SGOT) 21U/L (0-50) Alanine Aminotransferase (ALT/SGPT) 20U/L (0-44) Alkaline Phosphatase 137U/L (25-150) Total Protein 5.5g/dL (6.4-8.4) Albumin 2.7g/dL (3.4-5.0) Procalcitonin 0.40ng/mL (0.00-0.08) Discharge Medications Discharge Medications Metformin (Metformin) 500 Mg Tablet 500 MG PO BIDWM (Reported) Followup Plan Patient Instructions Patient left AMA before I could speak with him again. Should follow up with his primary care provider. Follow-up with PCP in: 1 week copies to: Kevin Peña MD, D Geoffrey MD Mar 12, 2017 10:05
--- NOTE | 2017-03-12 10:26 | NUR ---
Wallet Wallet retrieved from security, wallet given to patient, patient did not sign slip, patient left with wallet.
--- NOTE | 2017-03-12 11:04 | NUR ---
Social Work: Discharge AMA D: EMR reviewed. Pt is on day 6 of hospitalization. Per MD in AM multi-disciplanary rounds, pt is planning on leaving AMA. Per RN notes, "pt left AMA at 0950 hrs. PIV was removed intact by Torres Kee RN. All personal possessions with pt. Advised pt that his blood glucose was high and his diabetes was not well controlled. He stated he was aware of this and that he would get his blood sugar down by eating better and by exercising. Pt also reported to Torres that he would get a chest x-ray done and follow up with his primary care physician. Pt signed AMA release form before leaving." A: Pt who left hospital AMA P: Pt left hospital AMA at 0950 hrs today STONEY Prince
== END 2017-03-12 09:50 | disposition left against medical advice (07) | DRG 720 ==
LOC: SED 17:21 → OSC 23:35 → OBSVTOIN 23:35 → INTOOBSV 23:35 → OSC 03-07
PROVIDERS: ADMIT Hospitalist; ATTEND Hospitalist
DX: A41.9 Sepsis, unspecified organism (principal); J15.9 Unspecified bacterial pneumonia; J90 Pleural effusion, not elsewhere classified; E11.65 Type 2 diabetes mellitus with hyperglycemia; E87.1 Hypo-osmolality and hyponatremia; Z79.84 Long term (current) use of oral hypoglycemic drugs; K21.9 Gastro-esophageal reflux disease without esophagitis